=== PATIENT | female | born 1965 | race Hispanic/Latino ===

== ENCOUNTER 2017-03-02 14:52 | Emergency (ER) | payer BC ==
[2017-03-02 15:02] VITALS: RESP 18
--- NOTE | 2017-03-02 15:34 | C.PDOC ---
History Of Present Illness 52 year old female, with a history of Crohn's and Sjogren's Disease, complaints of boring left sided abdominal pain for one day, which started as an acute L flank pain radiating to the left groin. Associated with suprapubic burning, frequency and dysuria. Patient notes nausea with extreme pain and denies fever, chills, vomiting, diarrhea, or recent travel. Pain is much improved [employer]. Time Seen by Provider: 03/02/17 15:11 Chief Complaint (Nursing): Abdominal Pain History Per: Patient History/Exam Limitations: no limitations Onset/Duration Of Symptoms: Days (2 days ) Current Symptoms Are (Timing): Still Present Location Of Pain/Discomfort: Other (left sided ) Quality Of Discomfort: Dull (boring left sided ), Burning (suprapubic ) Associated Symptoms: Nausea. denies: Fever, Chills, Vomiting, Diarrhea Exacerbating Factors: None Alleviating Factors: None Recent travel outside of the [place]: No Abnormal Vaginal Bleeding: No Past Medical History Reviewed: Historical Data, Nursing Documentation, Vital Signs Vital Signs: Last Vital Signs Temp 98.2 F 03/02/17 18:45 Pulse 64 03/02/17 18:45 Resp 18 03/02/17 18:45 BP 114/70 03/02/17 18:45 Pulse Ox 100 03/02/17 18:58 - Medical History PMH: Crohn's Disease Family History: States: Unknown Family Hx - Social History Hx Alcohol Use: No Hx Substance Use: No - Immunization History Hx Tetanus Toxoid Vaccination: No Hx Influenza Vaccination: No Hx Pneumococcal Vaccination: No Review Of Systems Constitutional: Positive for: Other (alternating constipation and diarrhea depending on Crohn's flairs). Negative for: Fever, Chills Cardiovascular: Negative for: Chest Pain, Palpitations Respiratory: Negative for: Cough, Shortness of Breath Gastrointestinal: Positive for: Nausea, Abdominal Pain. Negative for: Vomiting , Diarrhea Physical Exam - Physical Exam Appears: Non-toxic, Other (patient is thin and appears to be in moderate distress from abdominal pain ) Skin: Warm, Dry, No Rash Head: Atraumatic, Normacephalic, No Tenderness Eye(s): bilateral: Normal Inspection, PERRL, EOMI Oral Mucosa: Dry Neck: Supple Chest: Symmetrical, No Deformity Cardiovascular: Rhythm Regular, No Murmur Respiratory: No Rales, No Rhonchi, No Wheezing, Other (clear to auscultation bilaterally ) Gastrointestinal/Abdominal: Soft, Tenderness (moderate left sided abdominal tenderness ), No Distention, No Guarding, No Rebound Extremity: Normal ROM, No Tenderness Neurological/Psych: Oriented x3 ED Course And Treatment - Laboratory Results Result Diagrams: 03/02/17 16:08 03/02/17 16:08 Lab Interpretation: Abnormal (+ mild elevated hematuria 88 RBC's) Urine POC: Negative O2 Sat by Pulse Oximetry: 100 (RA) Pulse Ox Interpretation: Normal - Radiology CXR: Interpreted by Me CXR Interpretation: Yes: No Acute Disease - CT Scan/US CT A/P Other Rad Studies (CT/US): Interpreted By Me, Read By Radiologist, Radiology Report Reviewed CT/US Interpretation: IMPRESSION: Nonobstructing left renal calculi measuring up to 5 mm. Thick-walled under distended urinary bladder. 3 mm calcification noted near the level of the left UVJ; correlate clinically. Limited visualization given under distention of the urinary bladder. Consider recently passed stone. No significant hydronephrosis identified. 9 mm and 4 mm hepatic hypodensities, too small to characterize ; statistically likely cysts or hemangiomas. Moderate to severe constipation. Additional incidental findings as above. Progress Note: Abdomen Pelvis PO & IV CT, blood work, and labs were ordered. Patient was given Pepcid, Toradol, Zofran, and Morphine. Reevaluation Time: 18:30 Reassessment Condition: Improved Medical Decision Making Medical Decision Making: constipation vs L renal colic, passing 3 mm stone @ L UVJ mild/mod hematuria probably causing dysuria/frequency as no pyuria remedies discussed, pt prefers pyridium to further NSAIDS/narcotics. renal stones may be due to increased calcium oxylate typical of malabsorption and small intestinal diseases, though pt w primarily constipation and not diarrhea typical of Crohn's dz. Disposition Doctor Will See Patient In The: Office Counseled Patient/Family Regarding: Studies Performed, Diagnosis - Disposition Referrals: [facility] [Outside] [place] [employer] [Outside] Santo Green MD [Staff Provider] - Disposition: HOME/ ROUTINE Disposition Time: 18:31 Condition: GOOD Additional Instructions: Constipation: Drink bottle of Mag Citrate now and re-eval your abd discomfort after using the bathroom 2-3 times Continue Colace 100 mg BID (stool softener) to help PREVENT constipation Drink plenty of water diet changes as needed Power Walk 1 hour/day x 5 days/week, increases intestinal motility Renal Colic 3 mm stone @ ureter/bladder junction, probably passed Continue Pyridium 100 mg every 6 hours as needed for bladder irritation NSAIDS like Motrin 600 mg every 6 hours are excellent for ureteral discomfort after passing stones. Follow-up with your PMD or our [facility] Urology follow-up as needed: Dr. Brock Green Prescriptions: Magnesium Citrate [[facility] Magnesium Citrate] 300 ml PO ONCE PRN #1 bottle PRN Reason: Constipation Phenazopyridine HCl [Pyridium] 100 mg PO TID PRN #6 tablet PRN Reason: dysuria Instructions: Constipation (ED), Renal Colic (ED) Forms: [employer] ([place]) - Clinical Impression Clinical Impression: Colicky LLQ abdominal pain - Scribe Statement The provider has reviewed the documentation as recorded by the Scribagustin Ya All medical record entries made by the Scribgaustin were at my direction and personally dictated by me. I have reviewed the chart and agree that the record accurately reflects my personal performance of the history, physical exam, medical decision making, and the department course for this patient. I have also personally directed, reviewed, and agree with the discharge instructions and disposition.
[2017-03-02] MEDS ORDERED: Morphine 4 MG/ML VIAL ONE (15:49)
[2017-03-02 16:12] LABS: BASO # 0.1 K/uL (0.0-0.2); BASO % 0.6 % (0.0-2.0); EOS # 0.1 K/uL (0.0-0.7); EOS % 0.8 % (0.0-4.0); HEMATOCRIT 36.8 % (34.0-47.0); LYMPH # 1.8 K/uL (1.0-4.3); LYMPH % 18.6 % (20.0-40.0); MEAN CELL VOLUME 94.2 fL (81.0-99.0); MEAN CORPUSCULAR HEMOGLOBIN 30.8 pg (27.0-31.0); MEAN CORPUSCULAR HGB CONC 32.7 g/dL (33.0-37.0); MEAN PLATELET VOLUME 7.6 fL (7.2-11.7); MONO # 0.7 K/uL (0.0-0.8); MONO % 7.8 % (0.0-10.0); RED CELL DISTRIBUTION WIDTH 12.9 % (11.5-14.5); WHITE BLOOD COUNT 9.5 K/uL (4.8-10.8)
[2017-03-02] MEDS ORDERED: Iohexol 240 (50 ml) ONE (16:14)
[2017-03-02 17:02] LABS: RBC URINE 66 /hpf (0-3); URINE BILIRUBIN NEGATIVE (NEGATIVE); URINE BLOOD 3+ (NEGATIVE); URINE COLOR Yellow (YELLOW); URINE GLUCOSE (UA) NORMAL (Normal); URINE KETONE NEGATIVE (NEGATIVE); URINE LEUKOCYTE ESTERASE TRACE Leu/uL (Negative); URINE PROTEIN NEGATIVE (NEGATIVE); URINE UROBILINOGEN NORMAL mg/dL (0.2-1.0); WBC URINE 8 /hpf (0-5)
[2017-03-02 17:06] LABS: ALB/GLOB RATIO 1.8 (1.0-2.1); ALKALINE PHOSPHATASE 77 U/L (38-126); ALT/SGPT 31 U/L (9-52); AST/SGOT 23 U/L (14-36); BILIRUBIN,TOTAL 0.7 mg/dL (0.2-1.3); BLOOD UREA NITROGEN 21 mg/dL (7-17); CALCIUM 8.4 mg/dl (8.6-10.4); CARBON DIOXIDE 28 mmol/L (22-30); CHLORIDE 95 mmol/L (98-107); GFR AFRICAN-AMERICAN > 60; GLUCOSE,RANDOM 89 mg/dL (65-105); POTASSIUM 3.4 mmol/L (3.6-5.2); SODIUM 132 mmol/L (132-148); TOTAL PROTEIN 6.5 g/dL (6.3-8.3)
[2017-03-02] MEDS ORDERED: Iodixanol 320 MG/ML 100 ML BOTTLE IV ONE (17:26)
--- NOTE | 2017-03-02 18:14 | CT ---
PROCEDURE: CT Abdomen and Pelvis with oral and IV contrast. HISTORY: L colon, h/o crohn's and Sjogrens COMPARISON: None available. TECHNIQUE: Contiguous axial images of the abdomen and pelvis. Oral and IV contrast was administered. Coronal and Sagittal reformats generated and reviewed. Contrast dose: 100 cc Visipaque 320 Radiation dose: Total exam DLP = 270.74 mGy-cm. This CT exam was performed using one or more of the following dose reduction techniques: Automated exposure control, adjustment of the mA and/or kV according to patient size, and/or use of iterative reconstruction technique. FINDINGS: LOWER THORAX: Mild basilar atelectasis. No visible pleural effusion or pneumothorax. LIVER: 9 mm and 4 mm hepatic hypodensities, too small to characterize ; statistically likely cysts or hemangiomas. GALLBLADDER AND BILE DUCTS: Unremarkable. PANCREAS: Unremarkable. SPLEEN: Unremarkable. ADRENALS: Unremarkable. KIDNEYS AND URETERS: The kidneys enhance symmetrically. No hydronephrosis or obstructing renal calculus. Nonobstructing left renal calculi measuring up to 5 mm. BLADDER: Thick-walled under distended urinary bladder. 3 mm calcification noted near the level of the left UVJ; correlate clinically. Limited visualization given under distention of the urinary bladder. Consider recently passed stone. No significant hydronephrosis identified. REPRODUCTIVE: Uterus is present. APPENDIX: The appendix is not identified. No secondary signs of acute appendicitis. BOWEL: The stomach is nondistended. The bowel loops appear within normal limits of caliber without evidence of intestinal obstruction. Moderate to severe constipation. PERITONEUM: No significant free fluid. No definite free air. LYMPH NODES: No bulky lymphadenopathy identified. VASCULATURE: No aortic aneurysm. BONES: No acute osseous abnormality is detected. OTHER FINDINGS: None. IMPRESSION: Nonobstructing left renal calculi measuring up to 5 mm. Thick-walled under distended urinary bladder. 3 mm calcification noted near the level of the left UVJ; correlate clinically. Limited visualization given under distention of the urinary bladder. Consider recently passed stone. No significant hydronephrosis identified. 9 mm and 4 mm hepatic hypodensities, too small to characterize ; statistically likely cysts or hemangiomas. Moderate to severe constipation. Additional incidental findings as above.
[2017-03-02 18:45] VITALS: BP 114/70; PULSE 64; TEMP 98.2
[2017-03-02 18:58] VITALS: O2SAT 100
== END 2017-03-02 19:01 | disposition home or self-care (01) ==
LOC: C.ER 14:52
DX: R10.32 Left lower quadrant pain (principal)
CPT/HCPCS: 74177; 80053; 81001; 83690; 84703; 85025; 96374; 96375; 99284; J1885; J2270; J2405; Q9967